=== PATIENT | female | born 1990 | race Caucasian/White ===

== ENCOUNTER 2022-11-20 16:45 | Emergency (ER) | payer OTHER ==
[~2022-11-20] VITALS: Ht 162.6 cm; Wt 86.0 kg
[2022-11-20 16:53] VITALS: O2SAT 98
[2022-11-20] MEDS ORDERED: KETOROLAC 60MG/2ML VIAL IM STA (17:37)
[2022-11-20] MEDS ORDERED: IBUP-2029 MT (19:24)
[2022-11-20] MEDS ORDERED: CYCL10TA21 MT (19:24)
[2022-11-20] MEDS ORDERED: KETOROLAC 30MG/ML VIAL IM NR (19:30)
[2022-11-20 19:53] VITALS: BP 114/87; PULSE 65; RESP 20; TEMP 98.1
== END 2022-11-20 19:55 | disposition home or self-care (01) ==
LOC: ER 16:45
DX: S10.93XA Contusion of unspecified part of neck, initial encounter (principal); S09.90XA Unspecified injury of head, initial encounter; W18.39XA Other fall on same level, initial encounter; Y93.89 Activity, other specified; Y92.89 Other specified places as the place of occurrence of the external cause; Y99.8 Other external cause status
CPT/HCPCS: 70450; 72125; 96372; 99285; J1885; Z7610